=== PATIENT | female | born 1935 ===

== ENCOUNTER → 2017-06-25 | Outpatient (CLI) | payer MEDICARE ==
[~2017-06-25] MED LIST: ACET500T68 PO; ALEN10TA PO; ALEN70TA43 PO; ATOR-1 PO; ATOR40TA24 PO; BUPR-124 PO; BUPR-126 PO; FLUO-202 PO; FLUOD OP; IBUP200C74 PO; LEVO75TA73 PO; LEVO88TA45 PO; LISI5TAB25 PO; METF-410 PO; SITA50TA6 PO
== END ==
LOC: RESP 19:50
PROVIDERS: ATTEND Family Medicine
DX: G47.33 Obstructive sleep apnea (adult) (pediatric) (principal); G47.61 Periodic limb movement disorder

== ENCOUNTER 2017-10-15 09:15 | Outpatient (RCR) | payer MEDICARE ==
--- NOTE | 2017-09-30 10:52 | PT INITIAL EVALUATION ---
MEDICAL DIAGNOSIS: Right Hip Pain, Generalized Weakness TREATMENT DIAGNOSIS: Right Hip Pain, Generalized Weakness, Low Back Pain DATE OF ONSET: 08/29/17 SUBJECTIVE: Joanna is a pleasant 82 year-old female presenting to physical therapy following a 1 MO long onset of R hip pain and groin pain following getting out of bed at home. Pt reports that pain is worse with walking and sometimes she feels like she can't put any weight on it at all. She reports that at worst pain goes up to an 8/10 described as moderate. Pt could not rate pain currently, but described it as medium. When she is sitting pain is decreased. Pain is located in the posterior R PSIS and lateral hip typically, however pt also sometimes gets pain in the R groin when getting out of the car or performing exercises. Pt previously had a lumbar surgery on and since has had numbness in the L leg below the knee so she relies on her R LE for balance and stability. She also occasionally has low back pain. REHAB PROBLEM LIST: Increased Pain Decreased ROM Decreased Strength Impaired Transfers Decreased Endurance Decreased Balance Decreased Function Decreased ADL's Decreased Mobility Decreased Gait PREVIOUS MEDICAL HISTORY: See EMR OCCUPATION: Retired OBJECTIVE: ROM: Lumbar Screen: Flexion/Ext: full with pain on rise from flexion and end range extension, L SB/L rotation: full wiwth slight R hip pain, R SB/R rotation : full without change in pain Hip screen: no pain with end range flexion B, pain in end range R ER with moderate limitations. Strength: MMT LE: Hip: flexion: R: 4/5 pn in groin, L 4/5 with pain in back, ext : B 4/5 without pain, abd: R 4/5 with pain in lateral hip, L 4/5, add: B 5/5 no pain, IR: R 3+/5 with pain in groin, L 4+/5 without pain, ER: R 4/5 without pain, L 4+/5. Knee: flexion/ext: B 5/5 Palpation: (-) tenderness to palpation of piriformis and obturator internus. (+ ) tenderness to palpation of adductors and internal rotators of the R hip. Special Tests: R hip testing: AUDI (+), FADIR (+), Thigh thrust (-) Mobility: Pt transfers from seated<>standing with B UE support with increased loading of the L LE resulting in LOB upon standing in 2/5 attempts. Gait: Antalgic gait with substantial lateral deviation and decreased weight bearing on the R LE. Pt typically ambulates without an AD however, she reports that she she goes shopping she frequently uses the cart for support and is thinking about getting a walker to help with long ambulation bouts. Other Objective Findings: Rigoberto Lumbar Screen: Extension: no change in pain, flexion: centralization of pain to lumbar spine only, then elimination of pain completely. ASSESSMENT: Joanna shows signs and symptoms consistent with a muscle sprain of the R hip internal rotators as well as lumbar dysfunction with radiating pain. Physical therapy is indicated to address the above listed impairments to improve functional mobility and ability to perform ADL's. Short Term Goals In 3 weeks pt will have full hip ROM B without onset of pain for improved function with ADL's. In 3 weeks pt will increase hip strength as tested by MMT to 4/5 or greater in all major muscle groups for improved function with ADL's. In 3 weeks pt will centralize lateral R hip pain to the lumbar spine only proximal to the R PSIS for improved function with ADL's. In 6 weeks pt will decrease radiating low back pain to <2/10 for improved function with ADL's and mobility. In 6 weeks pt will ambulate with normal gait mechanics without gait deviation for improved safety and mobility with daily ambulation. Patient's Goals Decrease pain in R hip/groin, be able to walk better without pain. PLAN: Patient to be seen for Manual Therapy/STM/MET Strengthening/condition Range of Motion Spinal Stabilization Stretching Iontophoresis Neuromuscular Re-ed Closed Chain Program Electrical Stim Posture/Body mechanics Gait Trg/Balance Trg Biofeedback Home Exercise Program Mech./Manual Traction Therapeutic Activities Pelvic Floor 3x/Week for 6 Weeks If you have any questions, comments, or concerns about this report or plan, please contact me at . Thank you, Noemi Freire, PT, DPT, CLT MTDD
--- NOTE | 2017-10-15 10:00 | PT PLAN OF CARE ---
Physician: Britt Guido MD Patient is being seen: 2-3x/Week Therapist: Noemi Freire, PT, DPT, CLT Medical Diagnosis: Right Hip Pain, Generalized Weakness Treatment Diagnosis: Right Hip Pain, Generalized Weakness, Low Back Pain Date of Onset: 08/29/17 Date of Initial Evaluation: 09/29/17 Date patient was last seen: 10/15/17 Number of treatments: 7 Number of cancellations/No shows: 0 INTERVENTIONS: Manual Therapy/STM/MET Strengthening/condition Range of Motion Spinal Stabilization Stretching Iontophoresis Neuromuscular Re-ed Closed Chain Program Electrical Stim Posture/Body mechanics Gait Trg/Balance Trg Biofeedback Home Exercise Program Mech./Manual Traction Therapeutic Activities Pelvic Floor GOALS: In 3 weeks pt will have full hip ROM B without onset of pain for improved function with ADL's. In 3 weeks pt will increase hip strength as tested by MMT to 4/5 or greater in all major muscle groups for improved function with ADL's. In 3 weeks pt will centralize lateral R hip pain to the lumbar spine only proximal to the R PSIS for improved function with ADL's. In 6 weeks pt will decrease radiating low back pain to <2/10 for improved function with ADL's and mobility. In 6 weeks pt will ambulate with normal gait mechanics without gait deviation for improved safety and mobility with daily ambulation. PATIENT'S GOAL: Decrease pain in R hip/groin, be able to walk better without pain. Status of Patient's Goals: 5/5 MET Patient Compliance: Excellent Prognosis: Good Reasons for discharge from therapy: Joanna is to discharge from physical therapy at this time secondary to completion of 5/5 functional goals. Pt currently reports no pain with any ADL's and has started independent aerobic exercise program. Pt is able to ambulate safely without any assisted devise and is no longer utilizing a cane. Pt is to follow up with PT if any future pain arises. Posture: ROM: Lumbar Screen: Full ROM in all directions without pain Hip screen: Full ROM without pain Strength: MMT LE: Hip: flexion: R: 4+/5, L 4/5, ext: B 4/5, abd: B 4/5, add: B 5/5, IR: B 4+/5 without pain, ER: B 4+/5. Knee: flexion/ext: B 5/5 If you have any questions or concerns, please feel free to contact me at . Thank you, Noemi Freire, PT, DPT, CLT KRIS
== END 2017-10-15 15:24 | disposition home or self-care (01) ==
LOC: PT 09:15
PROVIDERS: ATTEND Family Medicine
DX: M25.551 Pain in right hip (principal); R53.1 Weakness; M54.5 Low back pain; R10.31 Right lower quadrant pain; R20.2 Paresthesia of skin
CPT/HCPCS: 97162

== ENCOUNTER → 2018-05-25 | Outpatient (CLI) | payer MEDICARE ==
[~2018-05-25] MED LIST changes: +FLU180SY11 IM; +LISI-351 PO; +LISI-362 PO; -METF-410 PO; +METF-450 PO
[2018-05-25 10:48] LABS: PLATELET COUNT, AUTOMATED 238 K/uL (150-450)
== END ==
LOC: LAB 10:14
PROVIDERS: ATTEND Family Medicine
DX: E03.9 Hypothyroidism, unspecified (principal); E11.9 Type 2 diabetes mellitus without complications; E55.9 Vitamin D deficiency, unspecified; I10 Essential (primary) hypertension
CPT/HCPCS: 36415; 82040; 82247; 82306; 82310; 82374; 82435; 82565; 82947; 83036; 84075; 84132; 84155; 84295; 84443; 84450; 84460; 84520; 85025

== ENCOUNTER → 2018-05-27 | Outpatient (CLI) | payer MEDICARE ==
--- NOTE | 2018-05-27 13:19 | RADIOLOGY IMAGING REPORT ---
FACILITY: [facility] - [place] PATIENT NAME: Joanna Joyner : 1935 MR: [id number] V: [id number] EXAM DATE: ORDERING PHYSICIAN: HARIKA SHIN TECHNOLOGIST: Location: [facility] [place] Patient: Joanna Joyner : 1935 Visit/Account:[id number] Date of Sevice: 05/27/2018 DEXA Scan Clinical history: Postmenopausal. Comparison: None. HIP: Bone mineral density (BMD) measured in the Left total hip region correlates with a Z-score 0.8 and a T-score of -1 which is Normal as defined by the World Health Organization. The corresponding risk of fracture in the hip is Not increased compared with a young adult reference population. Bone mineral density (BMD) measured in the Femoral Neck region measures 0.884 g/cm2. FOREARM: The bone mineral density (BMD) measured in the ULTRADISTAL Left forearm, where trabecular bone predom inates, correlates with a Z-score -0.9 and a T-score of -3.7 which is osteoporosis as defined by the World Health Organization. The corresponding risk of fracture in the distal forearm is 12-16 times i ncreased compared with a young adult reference population. The bone mineral density (BMD) in the MIDSHAFT of the forearm, where cortical bone predominates, eusebia elates with a Z-score by 0.9 and a T-score of -3.7 which is osteoporosis as defined by the World Heal th Organization. The corresponding risk of fracture in the midshaft of the forearm is 12-16 times inc reased compared with a young adult reference population. IMPRESSION: 1. Left Hip: Normal. 2. Femoral Neck: Bone Mineral Density is 0.884 g/cm2 3. Left Forearm: Osteoporosis. The next DEXA scan of this patient should include the following sites: Left hip and the left forearm. FRAX? WHO Fracture Risk Assessment Tool link: <http://www.shef.ac.uk/FRAX/tool.jsp?locationValue=9> PLEASE NOTE: 1) The World Health Organization defines low BMD as follows: T-score Normal > -1 Osteopenia < -1 and > -2.5 Osteoporosis < -2.5 without fractures Established osteoporosis < -2.5 with fractures 2) In general, you may wish to consider: Diagnosis Treatment Follow-up DEXA Normal BMD Prevention 2-3 years Osteopenia Prevention/therapy 1-2 years Osteoporosis Therapy Yearly 3) Fracture risk estimated from the T-score is more accurate for vertebral fractures (often spontane ous) than for hip fractures. Report Dictated By: Peri Tristan MD at 05/27/2018 1:13 PM Report E-Signed By: Peri Tristan MD at 05/27/2018 1:15 PM SOLEDADN:[email or web address]
== END ==
LOC: RAD 00:29
PROVIDERS: ATTEND Family Medicine
DX: Z13.820 Encounter for screening for osteoporosis (principal); Z12.31 Encounter for screening mammogram for malignant neoplasm of breast; M81.0 Age-related osteoporosis without current pathological fracture; Z78.0 Asymptomatic menopausal state
CPT/HCPCS: 77080

== ENCOUNTER → 2018-07-09 | Outpatient (CLI) | payer MEDICARE | LOC: RESP 19:53 | PROVIDERS: ATTEND Family Medicine | DX: G47.33 Obstructive sleep apnea (adult) (pediatric) (principal); G47.36 Sleep related hypoventilation in conditions classified elsewhere; G47.61 Periodic limb movement disorder ==

== ENCOUNTER → 2018-09-21 | Outpatient (CLI) | payer MEDICARE ==
[~2018-09-21] MED LIST changes: +DICL100G39 TOP; +FLUT16SP19 NS; +OXYGENHOME INH; +RANI-366 PO
== END ==
LOC: LAB 14:24
PROVIDERS: ATTEND Family Medicine
DX: M19.90 Unspecified osteoarthritis, unspecified site (principal); R53.1 Weakness; R52 Pain, unspecified
CPT/HCPCS: 36415; 85651; 86140

== ENCOUNTER → 2018-12-14 | Outpatient (CLI) | payer MEDICARE ==
[~2018-12-14] MED LIST changes: -RANI-366 PO; +RANI-54 PO
[2018-12-14 14:39] LABS: PLATELET COUNT, AUTOMATED 238 K/uL (150-450)
== END ==
LOC: LAB 14:24
PROVIDERS: ATTEND Family Medicine
DX: E03.9 Hypothyroidism, unspecified (principal); E11.9 Type 2 diabetes mellitus without complications; I10 Essential (primary) hypertension
CPT/HCPCS: 36415; 82040; 82247; 82310; 82374; 82435; 82565; 82947; 83036; 84075; 84132; 84155; 84295; 84443; 84450; 84460; 84520; 85025